=== PATIENT | female | born 2000 | race Caucasian/White ===

== ENCOUNTER 2020-09-11 05:41 | Inpatient (IN) ==
[2020-09-11] MEDS ORDERED: CITRIC ACID/SODIUM CITRATE 30 ML UDCUP PO ONE ×2 (06:31→07:00)
[2020-09-11] MEDS ORDERED: ceFAZolin 2,000 MG in PREMIX 1 EACH IV ONE ×2 (06:31→10:00)
[2020-09-11] MEDS ORDERED: FAMOTIDINE 20 MG/2 ML VIAL IV ONE (06:36)
[2020-09-11] MEDS ORDERED: LACTATED RINGERS 500 ML IV ONE (06:36)
[2020-09-11] MEDS ORDERED: LACTATED RINGERS 1,000 ML IV ONE (06:36)
[2020-09-11] MEDS ORDERED: LACTATED RINGERS 1,000 ML IV SCH ×2 (07:00)
[2020-09-11 07:26] LABS: Basophils # 0.1 10*3/uL (0.0-0.2); Basophils % 0.6 % (0.0-0.8); Eosinophils # 0.2 10*3/uL (0.0-0.87); Eosinophils % 2.5 % (0.00-10.9); Hematocrit 27.1 VOL% (35.7-47.0); Hemoglobin 8.6 GM/DL (12.0-16.0); Immature Granulocytes % 1.5 %; Immature Granulocytes Absolute 0.13 #; Lymphocytes # 2.4 10*3/uL (1.4-4.0); Lymphocytes % 27.2 % (21.3-54.2); Mean Corpuscular HGB Conc 31.7 GM/DL (32-36); Mean Corpuscular Volume 76.3 FL (87-102); Mean Platelet Volume 11.3 FL (9.6-12.0); Monocytes % 14.5 % (1.7-12.7); Neutrophils % 53.7 % (38.7-73.9); Platelet Count 223 T/CUMM (130-400); Red Blood Count 3.55 MC/CUMM (3.8-5.5); Red Cell Distribution Width 14.3 % (9.3-17.3)
[2020-09-11 07:49] LABS: Albumin 2.1 G/DL (3.4-5.0); Bilirubin,Total 1.5 MG/DL (0.2-1.0); Calcium 8.4 MG/DL (8.5-10.1); Osmolality,Calculated 274.5 MOS/KG (273-304); Total Protein 6.1 G/DL (6.4-8.3)
[2020-09-11 07:49] LABS: Band Neutrophils 6 % (0-10); Eosinophils 1 % (0-10); Lymphocytes 25 % (20-55); Segmented Neutrophils 52 % (50-85); Total Cells Counted 100
[2020-09-11 07:50] LABS: Anisocytosis 1+; Platelet Estimate Normal; Smudge Cells Few
[2020-09-11] MEDS ORDERED: MORPHINE 10 MG/10 ML VIAL ONE (09:30)
[2020-09-11] MEDS ORDERED: PHENYLEPHRINE 1 MG/10 ML SYRINGE IV ONE (09:30)
[2020-09-11] MEDS ORDERED: fentaNYL 100 MCG/2 ML VIAL ONE (09:30)
[2020-09-11] MEDS ORDERED: ONDANSETRON 4 MG/2 ML VIAL ONE (09:30)
[2020-09-11] MEDS ORDERED: BUPIVACAINE SPINAL 0.75% 2 ML AMP SPINAL ONE (09:30)
[2020-09-11] MEDS ORDERED: DEXAMETHASONE 4 MG/1 ML VIAL ONE (09:31)
[2020-09-11] MEDS ORDERED: BUPIVACAINE MPF 0.25% 30 ML VIAL ONE (09:31)
[2020-09-11 10:45] LABS: Cord Arterial Blood HCO3 22.2 MMOL/L; Cord Venous Blood HCO3 23.6 MMOL/L; Cord Venous Blood PCO2 40.3 MMHG; Cord Venous Blood PO2 37.2 MMHG
[2020-09-11 10:53] LABS: Bacteria,Urine Occasional /HPF (Few); Bilirubin,Urine Negative (Negative); Blood, Urine Negative (Negative); Glucose,Urine (UA) Negative (Negative); Ketones,Urine Negative (Negative); Mucus,Urine Occasional /LPF (Occasional); Nitrite,Urine Negative (Negative); Protein,Urine Negative; RBC,Urine <1 /HPF (0-4); Urine Appearance CLEAR (Clear); Urine Color Yellow (Yellow); Urine Specific Gravity 1.009 (1.001-1.035); Urine Urobilinogen < 2.0 EU/DL (0.2-1.0); WBC,Urine 10 /HPF (0-6)
[2020-09-11] MEDS ORDERED: oxyCODONE/ACETAMINOPHEN 5-325 MG TABLET PO PRN (11:10)
[2020-09-11] MEDS ORDERED: MEASLES/MUMPS/RUBELLA VACCINE 0.5 ML VIAL SUBCUT ONE (11:10)
[2020-09-11] MEDS ORDERED: OXYTOCIN/LR 20 UNIT/1,000 ML BAG IV ONE (11:10)
[2020-09-11] MEDS ORDERED: BISACODYL 10 MG SUPP RECTAL PRN (11:10)
[2020-09-11] MEDS ORDERED: ONDANSETRON 4 MG/2 ML VIAL IV PRN (11:10)
[2020-09-11] MEDS ORDERED: WITCH HAZEL PADS 100/JAR TOP PRN (11:10)
[2020-09-11] MEDS ORDERED: RHO(D) IMMUNE GLOBULIN 300 MCG SYRINGE IM ONE (11:10)
[2020-09-11] MEDS ORDERED: BENZOCAINE 20%/MENTHOL 0.5% SPRAY 56 GM CAN TOP PRN (11:10)
[2020-09-11] MEDS ORDERED: DIPH/TET/ACEL PERT BOOSTER VACCINE 0.5 ML VIAL IM ONE (11:10)
[2020-09-11] MEDS ORDERED: LANOLIN 50% CREAM 0.3 OZ TUBE TOP PRN (11:10)
[2020-09-11] MEDS ORDERED: HYDROCORTISONE 2.5% RECTAL CREAM 30 GM TUBE TOP PRN (11:10)
[2020-09-11] MEDS ORDERED: ACETAMINOPHEN 325 MG TABLET PO PRN (11:10)
[2020-09-11] MEDS: KETOROLAC 30 MG/1 ML VIAL IV PRN (13:34)
[2020-09-11] MEDS ORDERED: diphenhydrAMINE 2% CREAM 28 GM TUBE TOP PRN (13:43)
[2020-09-11] MEDS ORDERED: SODIUM CHLORIDE 0.9% 100 ML IV ONE (17:42)
[2020-09-11] MEDS: ceFAZolin 1,000 MG in SYRINGE 1 EACH IV SCH (17:49)
[2020-09-11] MEDS: oxyCODONE/ACETAMINOPHEN 5-325 MG TABLET PO PRN (19:27)
[2020-09-11] MEDS: IBUPROFEN 800 MG TABLET PO PRN (19:28)
[2020-09-11] MEDS: DOCUSATE SODIUM 100 MG CAPSULE PO SCH (20:32)
[2020-09-11] MEDS: FERROUS SULFATE 325 MG TABLET PO SCH (20:32)
[2020-09-12] MEDS: KETOROLAC 30 MG/1 ML VIAL IV PRN (00:29)
[2020-09-12] MEDS: ceFAZolin 1,000 MG in SYRINGE 1 EACH IV SCH (02:21)
[2020-09-12] MEDS ORDERED: diphenhydrAMINE CAP 25 MG CAPSULE PO PRN (02:28)
[2020-09-12] MEDS: oxyCODONE/ACETAMINOPHEN 5-325 MG TABLET PO PRN ×2 (04:38→16:10)
[2020-09-12] MEDS: IBUPROFEN 800 MG TABLET PO PRN ×3 (04:39→21:23)
[2020-09-12] MEDS: SIMETHICONE CHEW 80 MG TABLET PO PRN ×3 (04:39→21:23)
[2020-09-12 05:48] LABS: Basophils # 0.1 10*3/uL (0.0-0.2); Basophils % 0.4 % (0.0-0.8); Eosinophils # 0.1 10*3/uL (0.0-0.87); Eosinophils % 0.5 % (0.00-10.9); Hematocrit 25.6 VOL% (35.7-47.0); Hemoglobin 7.8 GM/DL (12.0-16.0); Immature Granulocytes % 0.9 %; Immature Granulocytes Absolute 0.13 #; Lymphocytes # 2.2 10*3/uL (1.4-4.0); Lymphocytes % 15.5 % (21.3-54.2); Mean Corpuscular HGB Conc 30.5 GM/DL (32-36); Mean Corpuscular Volume 78.3 FL (87-102); Mean Platelet Volume 11.8 FL (9.6-12.0); Monocytes % 10.2 % (1.7-12.7); Neutrophils % 72.5 % (38.7-73.9); Platelet Count 190 T/CUMM (130-400); Red Blood Count 3.27 MC/CUMM (3.8-5.5); Red Cell Distribution Width 14.4 % (9.3-17.3)
[2020-09-12] MEDS: DOCUSATE SODIUM 100 MG CAPSULE PO SCH ×2 (09:58→21:23)
[2020-09-12] MEDS: MULTIVITAMIN (PRENATAL) TABLET PO SCH (09:58)
[2020-09-12] MEDS: FERROUS SULFATE 325 MG TABLET PO SCH ×2 (09:58→21:23)
[2020-09-12 20:21] LABS: Hematocrit 23.8 VOL% (35.7-47.0); Hemoglobin 7.2 GM/DL (12.0-16.0)
[2020-09-13 07:12] VITALS: BP 115/78
[2020-09-13] MEDS: MULTIVITAMIN (PRENATAL) TABLET PO SCH (09:37)
[2020-09-13] MEDS: DOCUSATE SODIUM 100 MG CAPSULE PO SCH (09:37)
[2020-09-13] MEDS: FERROUS SULFATE 325 MG TABLET PO SCH (09:37)
[2020-09-13] MEDS: oxyCODONE/ACETAMINOPHEN 5-325 MG TABLET PO PRN (09:43)
[2020-09-13] MEDS ORDERED: INFLUENZA VIRUS VACCINE 0.5 ML SYRINGE IM ONE (10:55)
== END 2020-09-13 13:05 | disposition home or self-care (01) | DRG 540 ==
LOC: N.OB 05:41 → N.LD 11:04 → N.OB 13:32
PROVIDERS: ADMIT Specialist; ATTEND Specialist
PROC: LDCSECT (ICD-10-PCS; 2020-09-11 13:45)